=== PATIENT | male | born 1965 | race Caucasian/White ===

== ENCOUNTER 2017-11-15 09:31 | Emergency (ER) | payer MEDICAID ==
[~2017-11-15] VITALS: Ht 175.3 cm; Wt 57.9 kg
[2017-11-15 09:34] VITALS: BP 164/91
[2017-11-15] MEDS ORDERED: DIPH,PERTUSS(ACELL),TET VAC/PF 0.5 ML IM-VACC ONE ×2 (10:15→10:30)
[2017-11-15] MEDS ORDERED: BACITRACIN ZINC OINT 500U/GM, 0.9 GM ONE (10:15)
== END 2017-11-15 10:51 | disposition home or self-care (01) ==
LOC: ED 10:39
DX: S80.211A Abrasion, right knee, initial encounter (principal); F17.210 Nicotine dependence, cigarettes, uncomplicated; W18.30XA Fall on same level, unspecified, initial encounter; Y93.89 Activity, other specified; Y92.098 Other place in other non-institutional residence as the place of occurrence of the external cause; Y99.8 Other external cause status
CPT/HCPCS: 90715; 96372; 99284

== ENCOUNTER 2018-05-22 20:08 | Inpatient (IN) | payer MEDICAID ==
[~2018-05-22] VITALS: Ht 175.3 cm; Wt 52.5 kg
[2018-05-22 20:43] LABS: BASOPHILS # (AUTO) 0.02 x10^3/uL (0-0.1); BASOPHILS % (AUTO) 0 % (0-1); EOSINOPHILS # (AUTO) 0.01 x10^3/uL (0-0.4); EOSINOPHILS % (AUTO) 0 % (1-7); LYMPHOCYTES # (AUTO) 0.93 x10^3/uL (1-3.4); LYMPHOCYTES % (AUTO) 11 % (22-44); MD NO; MEAN CORPUSCULAR HEMOGLOBIN 31.5 pg (27.5-34.5); MEAN CORPUSCULAR HGB CONC 34.3 g/dL (33.2-36.2); MEAN CORPUSCULAR VOLUME 91.8 fL (81-97); MEAN PLATELET VOLUME 8.8 fL (7.4-10.4); MONOCYTES # (AUTO) 1.39 x10^3/uL (0.2-0.8); MONOCYTES % (AUTO) 16 % (2-9); NEUTROPHILS # (AUTO) 6.53 x10^3/uL (1.8-6.8); NEUTROPHILS % (AUTO) 74 % (42-75); PLATELET COUNT 141 x10^3/uL (130-400); RED CELL DISTRIBUTION WIDTH 19.3 % (9.4-14.8)
[2018-05-22 20:50] LABS: ALANINE AMINOTRANSFERASE 181 U/L (12-78); ALBUMIN 4.3 g/dL (3.4-5.0); CALCIUM 9.2 mg/dL (8.5-10.1); CHLORIDE 68 mmol/L (98-107); CREATININE 1.61 mg/dL (0.7-1.3)
[2018-05-22 20:53] LABS: ALKALINE PHOSPHATASE 87 U/L (45-117); BILIRUBIN,TOTAL 3.8 mg/dL (0.2-1.0); TOTAL PROTEIN 8.5 g/dL (6.4-8.2)
[2018-05-22 20:58] LABS: ANION GAP 22 mmol/L (5-15)
[2018-05-22] MEDS ORDERED: SODIUM CHLORIDE 0.9% 1,000 ML IV ONE (21:05)
[2018-05-22] MEDS ORDERED: POTASSIUM CHLORIDE 20 MEQ TAB.ER.PRT PO ONE (21:30)
[2018-05-22] MEDS ORDERED: SODIUM CHLORIDE FLUSH 10ML SYR IVF ONE (21:30)
[2018-05-22] MEDS ORDERED: POTASSIUM CHLORIDE 20 MEQ TAB.ER.PRT ONE (22:02)
[2018-05-22] MEDS ORDERED: hydrALAzine 20 MG/ML, 1ML IVPush PRN (23:00)
[2018-05-22] MEDS ORDERED: ONDANSETRON 2MG/ML, 2ML IVPush PRN (23:00)
[2018-05-22] MEDS ORDERED: GUAIFENESIN/COD200MG-20MG/10ML LIQUID PO PRN (23:00)
[2018-05-22] MEDS ORDERED: ACETAMINOPHEN 325 MG TABLET PO PRN (23:00)
[2018-05-22] MEDS ORDERED: DOCUSATE 100 MG CAPSULE PO PRN (23:00)
[2018-05-23] MEDS ORDERED: SODIUM CHLORIDE 0.9% 1,000 ML IV SCH (01:00)
[2018-05-23 01:03] LABS: ANION GAP 15 mmol/L (5-15); CALCIUM 8.4 mg/dL (8.5-10.1); CHLORIDE 76 mmol/L (98-107); CREATININE 0.91 mg/dL (0.7-1.3)
[2018-05-23] MEDS ORDERED: POTASSIUM CHLORIDE 40 MEQ in SODIUM CHLORIDE 0.9% 500 ML IV ONE (01:30)
[2018-05-23] MEDS: POTASSIUM CHLORIDE 20 MEQ TAB.ER.PRT PO SCH ×2 (01:35→05:30)
[2018-05-23] MEDS: NICOTINE 14MG/24 HR PATCH.TD24 TD SCH (01:35)
[2018-05-23] MEDS ORDERED: MAGNESIUM SULFATE PMX 2GM/50ML 50 ML IV ONE ×2 (02:00→19:00)
[2018-05-23 02:25] LABS: CHLORIDE,URINE RANDOM 35 mmol/L; POTASSIUM,URINE RANDOM 41 mmol/L; SODIUM,URINE RANDOM 43 mmol/L
[2018-05-23] MEDS ORDERED: LORazepam 2 MG/ML, 1ML ONE (03:17)
[2018-05-23 03:18] LABS: CULTURE INDICATED? YES; MICROSCOPIC INDICATED
[2018-05-23 03:20] LABS: OSMOLALITY,URINE 419 mOsm/kg (500-850)
[2018-05-23] MEDS ORDERED: LORazepam 2 MG/ML, 1ML IV PRN ×4 (03:30)
[2018-05-23 04:00] VITALS: BP 114/70
[2018-05-23] MEDS: ENOXAPARIN 40 MG/0.4 ML SQ SCH (05:36)
[2018-05-23 05:47] LABS: MEAN CORPUSCULAR HEMOGLOBIN 31.3 pg (27.5-34.5); MEAN CORPUSCULAR HGB CONC 34.1 g/dL (33.2-36.2); MEAN CORPUSCULAR VOLUME 91.6 fL (81-97); RED BLOOD COUNT 3.41 x10^6/uL (4.38-5.82); RED CELL DISTRIBUTION WIDTH 19.1 % (9.4-14.8)
[2018-05-23 05:55] LABS: CHLORIDE 83 mmol/L (98-107)
[2018-05-23 06:06] LABS: ALANINE AMINOTRANSFERASE 141 U/L (12-78); ALBUMIN 3.5 g/dL (3.4-5.0); ALKALINE PHOSPHATASE 67 U/L (45-117); ANION GAP 9 mmol/L (5-15); BILIRUBIN,TOTAL 2.7 mg/dL (0.2-1.0); CALCIUM 8.5 mg/dL (8.5-10.1); CREATININE 0.84 mg/dL (0.7-1.3); TOTAL PROTEIN 7.2 g/dL (6.4-8.2)
[2018-05-23 06:40] VITALS: BP 114/70
[2018-05-23 06:47] LABS: <PLATELET ESTIMATE> DECREASED; ANISOCYTOSIS 1+; BASOPHILS # (AUTO) 0.02 x10^3/uL (0-0.1); BASOPHILS % (AUTO) 0 % (0-1); EOSINOPHILS # (AUTO) 0.03 x10^3/uL (0-0.4); EOSINOPHILS % (AUTO) 1 % (1-7); LARGE PLATELETS 1+; LYMPHOCYTES # (AUTO) 0.96 x10^3/uL (1-3.4); LYMPHOCYTES % (AUTO) 17 % (22-44); MD MORPH REVIEW ONLY; MEAN PLATELET VOLUME 9.2 fL (7.4-10.4); MONOCYTES # (AUTO) 1.04 x10^3/uL (0.2-0.8); MONOCYTES % (AUTO) 18 % (2-9); NEUTROPHILS # (AUTO) 3.62 x10^3/uL (1.8-6.8); NEUTROPHILS % (AUTO) 64 % (42-75); PLATELET COUNT 98 x10^3/uL (130-400); POLYCHROMASIA 1+
[2018-05-23 06:48] LABS: OVALOCYTES 1+; STOMATOCYTES 1+
[2018-05-23] MEDS ORDERED: POTASSIUM CHLORIDE 20 MEQ TAB.ER.PRT PO SCH (08:00)
[2018-05-23] MEDS: LORazepam 2 MG/ML, 1ML IV PRN ×4 (09:45→14:35)
[2018-05-23 10:10] LABS: AMPHETAMINE SCREEN, URINE Negative (Negative); BARBITURATE SCREEN, URINE Negative (Negative); BENZODIAZEPINE SCREEN, URINE Negative (Negative); CANNABINOID SCREEN, URINE Negative (Negative); COCAINE SCREEN, URINE Negative (Negative); METHADONE SCREEN, URINE Negative (Negative); OPIATE SCREEN, URINE Negative (Negative)
[2018-05-23] MEDS: PANTOPRAZOLE 40 MG IV IVPush SCH (11:47)
[2018-05-23] MEDS: THIAMINE 200 MG, FOLIC ACID 1 MG, MVI ADULT 10 ML in SODIUM CHLORIDE 0.9% 1,000 ML IV SCH (11:48)
[2018-05-23 12:19] LABS: INTERNATIONAL NORMALIZED RATIO 1.06 (0.93-1.1); PROTHROMBIN TIME 11.2 Seconds (9.6-11.5)
[2018-05-23 12:48] LABS: ANION GAP 9 mmol/L (5-15); CALCIUM 8.5 mg/dL (8.5-10.1); CHLORIDE 88 mmol/L (98-107); CREATININE 0.77 mg/dL (0.7-1.3)
[2018-05-23] MEDS ORDERED: PHENOBARBITAL SODIUM IV ONE ×3 (15:30→21:30)
[2018-05-23] MEDS ORDERED: SODIUM CHLORIDE 0.9% IV ONE ×3 (15:30→21:30)
[2018-05-23] MEDS: KSCALE TO 4.0 IV SCH (19:00)
[2018-05-23] MEDS ORDERED: POTASSIUM PHOSPHATE 44 MEQ in SODIUM CHLORIDE 0.9% 500 ML IV ONE (19:00)
[2018-05-24] MEDS: PHENOBARBITAL SODIUM 65 MG/ML, 1ML IM SCH ×2 (00:55→14:08)
[2018-05-24] MEDS: NICOTINE 14MG/24 HR PATCH.TD24 TD SCH (00:57)
[2018-05-24] MEDS: KSCALE TO 4.0 IV SCH ×2 (01:00→06:43)
[2018-05-24] MEDS ORDERED: POTASSIUM CHLORIDE 20 MEQ in SODIUM CHLORIDE 0.9% 250 ML IV ONE (03:30)
[2018-05-24 04:56] LABS: BASOPHILS # (AUTO) 0.01 x10^3/uL (0-0.1); BASOPHILS % (AUTO) 0 % (0-1); EOSINOPHILS # (AUTO) 0.08 x10^3/uL (0-0.4); EOSINOPHILS % (AUTO) 1 % (1-7); LYMPHOCYTES # (AUTO) 0.96 x10^3/uL (1-3.4); LYMPHOCYTES % (AUTO) 17 % (22-44); MD NO; MEAN CORPUSCULAR HEMOGLOBIN 30.4 pg (27.5-34.5); MEAN CORPUSCULAR HGB CONC 32.7 g/dL (33.2-36.2); MEAN CORPUSCULAR VOLUME 92.9 fL (81-97); MEAN PLATELET VOLUME 8.9 fL (7.4-10.4); MONOCYTES # (AUTO) 0.65 x10^3/uL (0.2-0.8); MONOCYTES % (AUTO) 12 % (2-9); NEUTROPHILS # (AUTO) 3.84 x10^3/uL (1.8-6.8); NEUTROPHILS % (AUTO) 69 % (42-75); PLATELET COUNT 104 x10^3/uL (130-400); RED BLOOD COUNT 3.77 x10^6/uL (4.38-5.82); RED CELL DISTRIBUTION WIDTH 18.8 % (9.4-14.8)
[2018-05-24 05:12] LABS: ALANINE AMINOTRANSFERASE 200 U/L (12-78); ALBUMIN 3.5 g/dL (3.4-5.0); ANION GAP 12 mmol/L (5-15); CALCIUM 7.9 mg/dL (8.5-10.1); CHLORIDE 91 mmol/L (98-107); CREATININE 0.52 mg/dL (0.7-1.3)
[2018-05-24 05:14] LABS: ALKALINE PHOSPHATASE 71 U/L (45-117); TOTAL PROTEIN 7.2 g/dL (6.4-8.2)
[2018-05-24] MEDS: ENOXAPARIN 40 MG/0.4 ML SQ SCH (05:49)
[2018-05-24] MEDS ORDERED: POTASSIUM CHLORIDE 10 MEQ in SODIUM CHLORIDE 0.9% 250 ML IV ONE (06:30)
[2018-05-24] MEDS: D5%-0.9% NACL 1,000 ML IV SCH (06:43)
[2018-05-24] MEDS ORDERED: DEXTROSE 50%, 50ML SYRINGE IVPush PRN (07:00)
[2018-05-24] MEDS ORDERED: GLUCAGON 1 MG IM PRN (07:00)
[2018-05-24] MEDS ORDERED: DEXTROSE 4 GM TAB.CHEW PO PRN (07:00)
[2018-05-24] MEDS: SODIUM CHLORIDE FLUSH 10ML SYR IVF SCH ×2 (07:49→21:00)
[2018-05-24] MEDS: PANTOPRAZOLE 40 MG IV IVPush SCH (07:49)
[2018-05-24] MEDS ORDERED: POTASSIUM CHLORIDE 20 MEQ TAB.ER.PRT PO ONE (12:00)
[2018-05-24] MEDS: THIAMINE 200 MG, FOLIC ACID 1 MG, MVI ADULT 10 ML in SODIUM CHLORIDE 0.9% 1,000 ML IV SCH (12:08)
[2018-05-24 21:45] VITALS: BP 138/84
[2018-05-25] MEDS: NICOTINE 14MG/24 HR PATCH.TD24 TD SCH ×2 (00:57→22:09)
[2018-05-25] MEDS: D5%-0.9% NACL 1,000 ML IV SCH (01:23)
[2018-05-25] MEDS: PHENOBARBITAL SODIUM 65 MG/ML, 1ML IM SCH ×2 (01:23→17:32)
[2018-05-25 01:35] VITALS: BP 118/74
[2018-05-25 05:02] LABS: MEAN CORPUSCULAR HEMOGLOBIN 31.3 pg (27.5-34.5); MEAN CORPUSCULAR HGB CONC 34.2 g/dL (33.2-36.2); MEAN CORPUSCULAR VOLUME 91.6 fL (81-97); MEAN PLATELET VOLUME 8.8 fL (7.4-10.4); PLATELET COUNT 116 x10^3/uL (130-400); RED BLOOD COUNT 3.21 x10^6/uL (4.38-5.82); RED CELL DISTRIBUTION WIDTH 19.1 % (9.4-14.8)
[2018-05-25 05:09] LABS: ALBUMIN 2.7 g/dL (3.4-5.0); ANION GAP 9 mmol/L (5-15); CALCIUM 7.5 mg/dL (8.5-10.1); CHLORIDE 90 mmol/L (98-107)
[2018-05-25 05:13] LABS: ALANINE AMINOTRANSFERASE 174 U/L (12-78); ALKALINE PHOSPHATASE 73 U/L (45-117); BILIRUBIN,TOTAL 1.5 mg/dL (0.2-1.0); CREATININE 0.69 mg/dL (0.7-1.3); TOTAL PROTEIN 6.1 g/dL (6.4-8.2)
[2018-05-25] MEDS ORDERED: POTASSIUM CHLORIDE 20 MEQ TAB.ER.PRT PO ONE ×2 (05:30→09:30)
[2018-05-25] MEDS: ENOXAPARIN 40 MG/0.4 ML SQ SCH (05:39)
[2018-05-25 05:44] LABS: BASOPHILS # (AUTO) 0.04 x10^3/uL (0-0.1); BASOPHILS % (AUTO) 0 % (0-1); EOSINOPHILS # (AUTO) 0.05 x10^3/uL (0-0.4); EOSINOPHILS % (AUTO) 0 % (1-7); LYMPHOCYTES # (AUTO) 1.04 x10^3/uL (1-3.4); LYMPHOCYTES % (AUTO) 9 % (22-44); MD SCAN; MONOCYTES # (AUTO) 1.81 x10^3/uL (0.2-0.8); MONOCYTES % (AUTO) 15 % (2-9); NEUTROPHILS % (AUTO) 76 % (42-75)
[2018-05-25 07:00] VITALS: BP 124/78
[2018-05-25] MEDS ORDERED: MAGNESIUM SULFATE PMX 4GM/100M 100 ML IV ONE (07:30)
[2018-05-25] MEDS ORDERED: POTASSIUM PHOSPHATE 44 MEQ in SODIUM CHLORIDE 0.9% 500 ML IV ONE (07:30)
[2018-05-25] MEDS: SODIUM CHLORIDE FLUSH 10ML SYR IVF SCH ×2 (09:00→21:00)
[2018-05-25] MEDS: PANTOPRAZOLE 40 MG IV IVPush SCH (09:00)
[2018-05-25] MEDS: POTASSIUM CHLORIDE 20 MEQ TAB.ER.PRT PO SCH ×2 (09:03→17:00)
[2018-05-25] MEDS ORDERED: GABAPENTIN 100 MG CAPSULE PO PRN (10:30)
[2018-05-25] MEDS: THIAMINE 200 MG, FOLIC ACID 1 MG, MVI ADULT 10 ML in SODIUM CHLORIDE 0.9% 1,000 ML IV SCH (12:24)
[2018-05-25 13:00] VITALS: BP 133/86
[2018-05-25 15:57] LABS: ANION GAP 9 mmol/L (5-15); CALCIUM 7.2 mg/dL (8.5-10.1); CHLORIDE 97 mmol/L (98-107); CREATININE 0.55 mg/dL (0.7-1.3)
[2018-05-25] MEDS ORDERED: PHENOBARBITAL SODIUM 65 MG/ML, 1ML ONE (17:26)
[2018-05-25 19:42] VITALS: BP 127/76
[2018-05-26 00:05] VITALS: BP 108/64
[2018-05-26] MEDS: PHENOBARBITAL SODIUM 65 MG/ML, 1ML IM SCH ×2 (05:38→17:22)
[2018-05-26] MEDS: ENOXAPARIN 40 MG/0.4 ML SQ SCH (05:38)
[2018-05-26 05:39] LABS: CHLORIDE 101 mmol/L (98-107)
[2018-05-26 05:45] LABS: ALANINE AMINOTRANSFERASE 157 U/L (12-78); ALBUMIN 2.8 g/dL (3.4-5.0); ALKALINE PHOSPHATASE 78 U/L (45-117); ANION GAP 7 mmol/L (5-15); CALCIUM 7.7 mg/dL (8.5-10.1); CREATININE 0.46 mg/dL (0.7-1.3); TOTAL PROTEIN 6.6 g/dL (6.4-8.2)
[2018-05-26 05:55] LABS: BASOPHILS # (AUTO) 0.07 x10^3/uL (0-0.1); BASOPHILS % (AUTO) 1 % (0-1); EOSINOPHILS # (AUTO) 0.09 x10^3/uL (0-0.4); EOSINOPHILS % (AUTO) 1 % (1-7); LYMPHOCYTES # (AUTO) 1.12 x10^3/uL (1-3.4); LYMPHOCYTES % (AUTO) 16 % (22-44); MD NO; MEAN CORPUSCULAR HEMOGLOBIN 30.5 pg (27.5-34.5); MEAN CORPUSCULAR HGB CONC 33.2 g/dL (33.2-36.2); MEAN CORPUSCULAR VOLUME 92.1 fL (81-97); MONOCYTES # (AUTO) 1.38 x10^3/uL (0.2-0.8); MONOCYTES % (AUTO) 19 % (2-9); NEUTROPHILS # (AUTO) 4.56 x10^3/uL (1.8-6.8); NEUTROPHILS % (AUTO) 63 % (42-75); PLATELET COUNT 156 x10^3/uL (130-400); RED BLOOD COUNT 3.14 x10^6/uL (4.38-5.82); RED CELL DISTRIBUTION WIDTH 19.5 % (9.4-14.8)
[2018-05-26 07:00] VITALS: BP 136/85
[2018-05-26] MEDS ORDERED: MAGNESIUM SULFATE PMX 2GM/50ML 50 ML IV ONE (07:00)
[2018-05-26] MEDS ORDERED: SODIUM PHOSPHATE 20 MMOL in SODIUM CHLORIDE 0.9% 500 ML IV ONE (07:00)
[2018-05-26] MEDS ORDERED: POTASSIUM CHLORIDE 20 MEQ TAB.ER.PRT PO ONE (07:00)
[2018-05-26] MEDS: PANTOPRAZOLE 40 MG IV IVPush SCH (07:36)
[2018-05-26] MEDS: SODIUM CHLORIDE FLUSH 10ML SYR IVF SCH ×2 (07:36→19:32)
[2018-05-26] MEDS: THIAMINE 200 MG, FOLIC ACID 1 MG, MVI ADULT 10 ML in SODIUM CHLORIDE 0.9% 1,000 ML IV SCH (13:26)
[2018-05-26 13:35] VITALS: BP 117/79
[2018-05-26 19:16] VITALS: BP 136/83
[2018-05-26] MEDS: NICOTINE 14MG/24 HR PATCH.TD24 TD SCH (19:31)
[2018-05-27 02:34] VITALS: BP 131/89
[2018-05-27 04:53] LABS: BASOPHILS # (AUTO) 0.07 x10^3/uL (0-0.1); BASOPHILS % (AUTO) 1 % (0-1); EOSINOPHILS # (AUTO) 0.07 x10^3/uL (0-0.4); EOSINOPHILS % (AUTO) 1 % (1-7); LYMPHOCYTES # (AUTO) 1.29 x10^3/uL (1-3.4); LYMPHOCYTES % (AUTO) 19 % (22-44); MD NO; MEAN CORPUSCULAR HEMOGLOBIN 31.5 pg (27.5-34.5); MEAN CORPUSCULAR HGB CONC 33.8 g/dL (33.2-36.2); MEAN CORPUSCULAR VOLUME 93.3 fL (81-97); MEAN PLATELET VOLUME 8.7 fL (7.4-10.4); MONOCYTES # (AUTO) 1.31 x10^3/uL (0.2-0.8); MONOCYTES % (AUTO) 19 % (2-9); NEUTROPHILS # (AUTO) 4.02 x10^3/uL (1.8-6.8); NEUTROPHILS % (AUTO) 59 % (42-75); PLATELET COUNT 222 x10^3/uL (130-400); RED CELL DISTRIBUTION WIDTH 19.6 % (9.4-14.8)
[2018-05-27 04:58] LABS: ALBUMIN 3.2 g/dL (3.4-5.0); ANION GAP 9 mmol/L (5-15); CALCIUM 8.5 mg/dL (8.5-10.1); CHLORIDE 97 mmol/L (98-107)
[2018-05-27 05:03] LABS: ALANINE AMINOTRANSFERASE 166 U/L (12-78); ALKALINE PHOSPHATASE 83 U/L (45-117); BILIRUBIN,TOTAL 0.6 mg/dL (0.2-1.0); CREATININE 0.59 mg/dL (0.7-1.3); TOTAL PROTEIN 7.2 g/dL (6.4-8.2)
[2018-05-27] MEDS: ENOXAPARIN 40 MG/0.4 ML SQ SCH (05:23)
[2018-05-27] MEDS: PHENOBARBITAL SODIUM 65 MG/ML, 1ML IM SCH (05:23)
[2018-05-27 06:31] VITALS: BP 123/87
[2018-05-27] MEDS: PANTOPRAZOLE 40 MG IV IVPush SCH (08:01)
[2018-05-27] MEDS: SODIUM CHLORIDE FLUSH 10ML SYR IVF SCH (08:02)
[2018-05-27] MEDS ORDERED: MAGNESIUM SULFATE 3 GM in SODIUM CHLORIDE 0.9% 100 ML IV ONE (10:30)
[2018-05-27] MEDS ORDERED: THIA100T67 PO (10:48)
[2018-05-27] MEDS ORDERED: FOLI100T PO (10:48)
[2018-05-27 12:03] VITALS: BP 118/77
[2018-05-27] MEDS: THIAMINE 200 MG, FOLIC ACID 1 MG, MVI ADULT 10 ML in SODIUM CHLORIDE 0.9% 1,000 ML IV SCH (13:00)
[2018-05-28] MEDS ORDERED: PHENOBARBITAL 20 MG/5 ML ORAL SOL PO SCH (01:00)
[2018-05-29] MEDS ORDERED: PHENOBARBITAL 20 MG/5 ML ORAL SOL PO SCH (01:00)
== END 2018-05-27 14:08 | disposition home or self-care (01) | DRG 896 ==
LOC: ED 21:31 → EDIP 21:42 → CCU 23:59 → 3NE 05-24 14:18
PROVIDERS: ADMIT Internal Medicine; ATTEND Internal Medicine
DX: F10.239 Alcohol dependence with withdrawal, unspecified (principal); G93.41 Metabolic encephalopathy; E43 Unspecified severe protein-calorie malnutrition; N17.9 Acute kidney failure, unspecified; E87.1 Hypo-osmolality and hyponatremia; Z68.1 Body mass index [BMI] 19.9 or less, adult; D69.6 Thrombocytopenia, unspecified; E83.39 Other disorders of phosphorus metabolism; E83.42 Hypomagnesemia; E86.0 Dehydration; M54.9 Dorsalgia, unspecified; E87.6 Hypokalemia; F17.210 Nicotine dependence, cigarettes, uncomplicated; F41.9 Anxiety disorder, unspecified; R29.6 Repeated falls; S61.216A Laceration without foreign body of right little finger without damage to nail, initial encounter; S00.81XA Abrasion of other part of head, initial encounter; W18.39XA Other fall on same level, initial encounter; Y93.89 Activity, other specified; Y92.89 Other specified places as the place of occurrence of the external cause
CPT/HCPCS: 36415; 99291; J7042; 70450; 71045; 76700; 80048; 80053; 80307; 81001; 82140; 82436; 82533; 82570; 83735; 83935; 84100; 84132; 84133; 84300; 84443; 85025; 85610; 87081; 87086; 87205; 93005; G0378; J1650; J2560; J3411; J3475; J3480; C9113; J2060; J7030; J7040; J7050

== ENCOUNTER 2018-08-19 07:05 | Emergency (ER) | payer MEDICAID ==
[~2018-08-19 07:05] MED LIST: FOLI100T PO; THIA100T67 PO
[2018-08-19 07:11] VITALS: BP 135/86
== END 2018-08-19 08:19 | disposition home or self-care (01) ==
LOC: ED 08:13
DX: R21 Rash and other nonspecific skin eruption (principal)
CPT/HCPCS: 99283

== ENCOUNTER 2018-09-04 22:29 | Emergency (ER) | payer MEDICAID ==
[~2018-09-04] VITALS: Ht 170.2 cm; Wt 56.0 kg
[2018-09-04 22:33] VITALS: BP 115/75
[2018-09-04] MEDS ORDERED: DIPHENHYDRAMINE 25 MG CAPSULE PO ONE (23:00)
[2018-09-04] MEDS ORDERED: DIPHENHYDRAMINE 25 MG CAPSULE ONE (23:08)
--- NOTE | 2018-09-04 23:10 | NUR ---
PT MEDICATED PER MAR
== END 2018-09-04 23:38 | disposition home or self-care (01) ==
LOC: ED 23:32
DX: B86 Scabies (principal)
CPT/HCPCS: 99283; Q0163

== ENCOUNTER 2018-09-10 09:38 | Emergency (ER) | payer MEDICAID ==
[~2018-09-10] VITALS: Ht 175.3 cm; Wt 58.2 kg
[2018-09-10 09:43] VITALS: BP 155/93
--- NOTE | 2018-09-10 11:03 | NUR ---
Discharge instructions discussed with patient including when to return to emergency department, verbalizes understanding. Prescription provided with instruction for use.
== END 2018-09-10 11:07 | disposition home or self-care (01) ==
LOC: ED 11:01
DX: L03.113 Cellulitis of right upper limb (principal); L02.413 Cutaneous abscess of right upper limb; F17.200 Nicotine dependence, unspecified, uncomplicated
CPT/HCPCS: 99283

== ENCOUNTER 2019-01-13 14:20 | Emergency (ER) | payer MEDICAID ==
[~2019-01-13] VITALS: Ht 175.3 cm; Wt 53.7 kg
[2019-01-13 14:27] VITALS: BP 138/91
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
--- NOTE | 2019-01-13 14:57 | NUR ---
Patient/Caregiver given discharge instructions and they have confirmed that they understand the instructions. Patient ambulatory with steady gait.
== END 2019-01-13 15:00 | disposition home or self-care (01) ==
LOC: ED 14:54
DX: S06.0X9A Concussion with loss of consciousness of unspecified duration, initial encounter (principal); Y04.8XXA Assault by other bodily force, initial encounter; Y93.89 Activity, other specified; Y92.410 Unspecified street and highway as the place of occurrence of the external cause; Y99.8 Other external cause status
CPT/HCPCS: 99281

== ENCOUNTER 2019-10-05 12:34 | Emergency (ER) | payer MEDICAID ==
[~2019-10-05] VITALS: Ht 177.8 cm; Wt 57.4 kg
[2019-10-05 12:40] VITALS: BP 119/88
--- NOTE | 2019-10-05 13:24 | NUR ---
Patient given discharge instructions and they have confirmed that they understand the instructions. Patient ambulatory with steady gait.
== END 2019-10-05 13:26 | disposition home or self-care (01) ==
LOC: ED 13:07
DX: R00.0 Tachycardia, unspecified (principal); F10.10 Alcohol abuse, uncomplicated; F41.9 Anxiety disorder, unspecified; F17.200 Nicotine dependence, unspecified, uncomplicated; Y90.9 Presence of alcohol in blood, level not specified
CPT/HCPCS: 99281